=== PATIENT | female | born 1965 | race Caucasian/White ===

== ENCOUNTER 2020-10-03 03:47 | Emergency (ER) | payer MEDICARE, OTHER ==
[~2020-10-03 03:47] MED LIST: B-12500 MC1 PO; CYMBALTA 30MG C30 MG PO; SINGULAIR10 MG PO; VITAMIN D400 UNIT PO; WELLBUTRIN XL150 MG PO
[2020-10-03 04:19] LABS: AMPHETAMINES NEGATIVE (NEGATIVE); BARBITURATES NEGATIVE (NEGATIVE); ECSTASY (MDMA) NEGATIVE (NEGATIVE); MARIJUANA (THC) NEGATIVE (NEGATIVE); METHADONE NEGATIVE (NEGATIVE); OPIATES NEGATIVE (NEGATIVE); OXYCODONE NEGATIVE (NEGATIVE)
== END 2020-10-03 05:06 | disposition home or self-care (01) ==
LOC: FER 03:47
PROVIDERS: Emergency Medicine
DX: R41.82 Altered mental status, unspecified (principal); Z91.040 Latex allergy status; Z88.6 Allergy status to analgesic agent
CPT/HCPCS: 80305; 99284